=== PATIENT | male | born 1985 | race Caucasian/White ===

== ENCOUNTER 2024-02-03 18:53 | Emergency (ER) | payer BC ==
[2024-02-03] MEDS: Diphtheria,Pertussis(Acell),Tetanus Vaccine 0.5 ML Syringe IM ONE (20:32)
[2024-02-03] MEDS: Acetaminophen/HYDROcodone 325-10 MG Tab PO ONE (21:18)
[2024-02-03] MEDS: cefTRIAXone 1 GM in Sodium Chloride 0.9% 50 ML IV ONE (21:18)
[2024-02-03] MEDS: Ketorolac 30 MG/ML SDV IVPUSH ONE (21:19)
[2024-02-03] MEDS: Bacitracin Oint 1 GM U/D Packet TOP ONE (21:19)
[2024-02-03] MEDS: Ondansetron 4 MG/2 ML SDV IVPUSH ONE (22:31)
[2024-02-03] MEDS: Sodium Chloride 0.9% 1,000 ML IV SCH (22:31)
== END 2024-02-03 23:00 | disposition home or self-care (01) ==
LOC: JP.ED 18:53
DX: S62.663B Nondisplaced fracture of distal phalanx of left middle finger, initial encounter for open fracture (principal); Z23 Encounter for immunization; F17.210 Nicotine dependence, cigarettes, uncomplicated; W23.0XXA Caught, crushed, jammed, or pinched between moving objects, initial encounter
CPT/HCPCS: 73140; 90471; 90715; 96365; 96375; 99283; 99284; A9270; J0696; J1885; J3490; J7030